=== PATIENT | male | born 1995 | race Caucasian/White ===

== ENCOUNTER 2021-04-25 12:56 | Emergency (ER) | payer OTHER ==
[2021-04-25 17:15] LABS: SARS-COV-2 RT PCR POSITIVE (NEGATIVE)
--- NOTE | 2021-04-25 17:17 | EDPHYS ---
Physician Documentation [facility] Name: Tonny Aldrich Age: 26 yrs Sex: Male : 1995 Arrival Date: 04/25/2021 Time: 12:59 Bed 11 Private MD: El Jarvis HPI: 04/25 15:50 This 26 yrs old Male presents to ER via Ambulatory with complaints of Weight Loss, cp Swollen Lymph Node. 15:50 The patient or guardian complains of tenderness, enlarged lymph node. Onset: The cp symptoms/episode began/occurred 1 week(s) ago. Associated signs and symptoms: Pertinent positives: fatigue, weight loss, Pertinent negatives: fever, headache, cough. Historical: - Allergies: 13:57 No Known Allergies; ll1 - PMHx: 13:57 None; ll1 - PSHx: 13:57 None; ll1 - Immunization history:: Client reports receiving the 2nd dose of the Covid vaccine. - Social history:: Smoking status: Reported history of juuling and/or vaping. ROS: 15:55 Constitutional: Positive for fatigue, weight loss, Negative for body aches, chills, cp fever, poor PO intake. 15:55 Eyes: Negative for injury, pain, redness, and discharge. cp 15:55 ENT: Negative for drainage from ear(s), ear pain, sore throat, difficulty swallowing, difficulty handling secretions. 15:55 Cardiovascular: Negative for chest pain. 15:55 Respiratory: Negative for cough, shortness of breath, wheezing. 15:55 Abdomen/GI: Negative for abdominal pain, nausea, vomiting, and diarrhea. 15:55 Skin: Negative for rash. 15:55 Neuro: Negative for headache, weakness. 15:55 All other systems are negative. Exam: 16:00 Constitutional: The patient appears in no acute distress, alert, awake, comfortable, cp non-toxic, well developed, well nourished. 16:00 Head/Face: Normocephalic, atraumatic. cp 16:00 Eyes: Periorbital structures: appear normal, Conjunctiva: normal, no exudate, no injection, Sclera: no appreciated abnormality, Lids and lashes: appear normal, bilaterally. 16:00 ENT: External ear(s): are unremarkable, Ear canal(s): are normal, clear, TM's: dullness, bilaterally, Nose: is normal, Mouth: Lips: moist, Oral mucosa: pink and intact, moist, Posterior pharynx: Airway: no evidence of obstruction, patent, Tonsils: are normal in appearance, swelling, is not appreciated, erythema, is not appreciated, exudate, is not appreciated. 16:00 Neck: ROM/movement: is normal, is supple, without pain, no range of motions limitations, no meningismus, no nuchal rigidity, Lymph nodes: lymphadenopathy is appreciated, anterior cervical nodes. 16:00 Chest/axilla: Inspection: normal. 16:00 Cardiovascular: Rate: normal, Rhythm: regular. 16:00 Respiratory: the patient does not display signs of respiratory distress, Respirations: normal, no use of accessory muscles, no retractions, labored breathing, is not present, Breath sounds: are clear throughout, no decreased breath sounds, no stridor, no wheezing. 16:00 Abdomen/GI: Exam negative for discomfort, distension, guarding, Inspection: abdomen appears normal. Vital Signs: 13:55 BP 142 / 92; Pulse 87; Resp 16; Temp 98.2; Pulse Ox 100% ; Height 6 ft. (182.88 cm); ll1 Pain 0/10; 17:29 BP 131 / 72; Pulse 80; Resp 16; Pulse Ox 100% ; ll1 MDM: 15:35 Patient medically screened. cp 17:16 Data reviewed: vital signs, nurses notes, lab test result(s), and as a result, I will cp discharge patient. 17:16 Differential diagnosis: strep mono, abscess, COVID-19. Counseling: I had a detailed cp discussion with the patient and/or guardian regarding: the historical points, exam findings, and any diagnostic results supporting the discharge/admit diagnosis, lab results, the need for outpatient follow up, a family practitioner, to return to the emergency department if symptoms worsen or persist or if there are any questions or concerns that arise at home. 04/25 15:48 Order name: Strep; Complete Time: 17:04 cp 04/25 17:04 Interpretation: Reviewed. 04/25 15:48 Order name: COVID-19/FLU A+B (Document "Date of Onset" if Symptomatic); Complete Time: cp 17:16 04/25 16:42 Order name: Throat Culture EDMS Administered Medications: No medications were administered Disposition Summary: 04/25/21 17:16 Discharge Ordered Location: Home cp Problem: new cp Symptoms: are unchanged cp Condition: Stable cp Diagnosis - SARS-associated coronavirus as the cause of diseases classified elsewhere cp Followup: cp - With: Private Physician - When: 1 week - Reason: Recheck today's complaints Discharge Instructions: - Discharge Summary Sheet cp - Form - Excuse from Work, School, or Physical Activity cp - COVID-19 cp - Things to Know about the COVID-19 Pandemic - [facility] cp - 10 Things You Can Do to Manage Your COVID-19 Symptoms at Home - [facility] cp - COVID-19: Quarantine vs. Isolation - [facility] cp - Prevent the Spread of COVID-19 if You Are Sick - [facility] cp Forms: - Medication Reconciliation Form cp - Thank You Letter cp - Antibiotic Education cp - Prescription Opioid Use cp Prescriptions: - Ibuprofen 800 mg Oral Tablet - take 1 tablet by ORAL route every 8 hours As needed take with food; 30 tablet; cp Refills: 0, Product Selection Permitted Addendum: 04/27/2021 07:22 Co-signature as Attending Physician, El Gee MD I agree with the assessment and c mederos plan of care. Signatures: Dispatcher [employer] EDMS El Gee MD MD cha Page, Corey PA Ruma Her cp, RN RN ll1
--- NOTE | 2021-04-25 17:17 | ER ---
Nurse's Notes [facility] Name: Tonny Aldrich Age: 26 yrs Sex: Male : 1995 Arrival Date: 04/25/2021 Time: 12:59 Bed 11 Private MD: Diagnosis: SARS-associated coronavirus as the cause of diseases classified elsewhere Presentation: 04/25 13:55 Chief complaint: Patient states: Reports weight loss for past 3 weeks. [place] a swollen ll1 lymph node to R side of neck area about 1 week. ago. No fever or cough. States he had a penile infection a couple months ago he never treated, so he believes it may be causing his symptoms now. Coronavirus screen: Vaccine status: Patient reports receiving the 2nd dose of the covid vaccine. Client denies travel out of the [place] in the last 14 days. At this time, the client does not indicate any symptoms associated with coronavirus-19. Ebola Screen: Patient denies travel to an Ebola-affected area in the 21 days before illness onset. Initial Sepsis Screen: Does the patient meet any 2 criteria? No. Patient's initial sepsis screen is negative. Does the patient have a suspected source of infection? No. Patient's initial sepsis screen is negative. Risk Assessment: Do you want to hurt yourself or someone else? Patient reports no desire to harm self or others. Onset of symptoms was April 03, 2021. 13:55 Method Of Arrival: Ambulatory ll1 13:55 Acuity: KAYY 4 ll1 Triage Assessment: 13:58 General: Appears in no apparent distress. Behavior is calm, cooperative, appropriate ll1 for age. Pain: Denies pain. EENT: Reports knot R side of neck. Historical: - Allergies: 13:57 No Known Allergies; ll1 - PMHx: 13:57 None; ll1 - PSHx: 13:57 None; ll1 - Immunization history:: Client reports receiving the 2nd dose of the Covid vaccine. - Social history:: Smoking status: Reported history of juuling and/or vaping. Screenin:31 Abuse screen: Denies threats or abuse. Nutritional screening: No deficits noted. ll1 Tuberculosis screening: No symptoms or risk factors identified. Fall Risk Total Mendoza Fall Scale indicates No Risk (0-24 pts). Assessment: 15:18 Reassessment: No changes from previously documented assessment. Patient and/or family ll1 updated on plan of care and expected duration. Pain level reassessed. Patient is alert, oriented x 3, equal unlabored respirations, skin warm/dry/pink. 16:15 Reassessment: No changes from previously documented assessment. Patient and/or family ll1 updated on plan of care and expected duration. Pain level reassessed. Patient is alert, oriented x 3, equal unlabored respirations, skin warm/dry/pink. 17:15 Reassessment: No changes from previously documented assessment. Patient and/or family ll1 updated on plan of care and expected duration. Pain level reassessed. Patient is alert, oriented x 3, equal unlabored respirations, skin warm/dry/pink. Vital Signs: 13:55 BP 142 / 92; Pulse 87; Resp 16; Temp 98.2; Pulse Ox 100% ; Height 6 ft. (182.88 cm); ll1 Pain 0/10; 17:29 BP 131 / 72; Pulse 80; Resp 16; Pulse Ox 100% ; ll1 ED Course: 12:59 Patient arrived in ED. ds1 13:57 Triage completed. ll1 13:58 Arm band placed on. ll1 15:18 Ruma Leone RN is Primary Nurse. ll1 15:18 Patient placed in an exam room, on a stretcher. ll1 15:28 El Jack PA is PHCP. cp 15:28 El Gee MD is Attending Physician. cp 17:31 No provider procedures requiring assistance completed. Patient did not have IV access ll1 during this emergency room visit. 17:32 Patient has correct armband on for positive identification. Bed in low position. Call ll1 light in reach. Side rails up X 1. Cardiac monitoring not applicable on this patient. Administered Medications: No medications were administered Outcome: 17:16 Discharge ordered by MD. cp 17:32 Discharged to home ambulatory. ll1 17:32 Condition: stable 17:32 Discharge instructions given to patient, Instructed on discharge instructions, follow up and referral plans. medication usage, Demonstrated understanding of instructions, follow-up care, medications, Prescriptions given X 1. 17:32 Patient left the ED. ll1 Signatures: Diane Mcdonald ds1 El Jack PA PA cp Ruma Leone RN RN ll1
[2021-04-25 17:37] VITALS: TEMP 98.2; O2SAT 100
[2021-04-25 17:39] VITALS: BP 131/72
== END 2021-04-25 17:32 | disposition home or self-care (01) ==
LOC: ER 12:56
DX: U07.1 COVID-19 (principal)
CPT/HCPCS: 87070; 87081; 0240U; 99282

== ENCOUNTER 2021-08-30 10:44 | Emergency (ER) | payer OTHER ==
--- OUTSIDE RECORDS SUMMARY | 2021-08-30 10:46 | XMS REPORT | Continuity of Care Document ---
:1995 Author Organization [facility] t Address [address] [place] [address] Care Team Providers Name Role Phone PCP, DOES NOT HAVE A Primary Care Physician Unavailable MIGUEL VALDEZ Attending Clinician Unavailable Miguel Valdez MD Attending Clinician MIGUEL VALDEZ Admitting Clinician Unavailable Payers Payer Name Policy Type Policy Number Effective Date Expiration Date S ource Medicaid D [id number] [facility] [id number] 2019 00:00:00 Problems Condition Condition Condition Status Onset Resolution Last Treating Co mments Source Name Details Category Date Date Treatment Clinician Date No known No known Disease Unive rs active active ity of problems problems [facility] Allergies, Adverse Reactions, Alerts Allergy Allergy Status Severity Reaction(s) Onset Inactive Treating Comm ents Source Name Type Date Date Clinician NO KNOWN Drug Active Univers ALLERGIE Class ity of S [facility] Social History Social Habit Start Date Stop Date Quantity Comments Source Sex Assigned At [birth year] [facility] 00:00:00 00:00:00 [facility] Smoking Status Start Date Stop Date Source Unknown if ever smoked [facility] Medications Ordered Filled Start Stop Current Ordering Indication Dosage Frequency Signature Comments Components Source Medication Medication Date Date Medication? Clinician (SIG) Name Name lactulose No 30mL 30 mL, Unive rs (CEPHULAC) 06-10 Oral, ity of solution 30 07:45: 06:58 [place] mL 00 :00 dose, On Medical Fri Branch 06/10/21 at 0145, TANI magnesium 2021- No 296mL 296 mL, Uni vers citrate 06-10 Oral, ity of solution 07:45: 06:59 ONCE, 1 [place] 296 mL 00 :00 dose, On Medical Fri Branch 06/10/21 at 0145, TANI polyethylen Yes [id number] 1{packe Take 1 Univers e glycol 2-11 t} Packet by ity of 3350 00:00: mouth [place] (MIRALAX) 00 every 4 Medical 17 gram (four) Branch powder hours as needed for Constipati on for up to 12 doses. glycerin/mi 2021- Yes [id number] 225mL Insert 225 Univers neral oil, 06-10 mL into ity o f AGLO ENEMA, 00:00: 05:59 rectum Maurice as Enem 00 :00 once now Medical for 1 Branch dose. Immunizations Ordered Immunization Filled Immunization Date Status Commen ts Source Name Name Joanna COVID-19 Moderna COVID-19 2020-08-13 Completed Vaccine Vaccine 00:00:00 Louanna COVID-19 Moderna COVID-19 2020-07-16 Completed Vaccine Vaccine 00:00:00 Vital Signs Vital Name Observation Time Observation Value Comments Source Systolic blood 2021-06-10 05:12:00 109 mm[Hg] Univer sity of pressure [facility] Diastolic blood 2021-06-10 05:12:00 65 mm[Hg] Unive rsity of [facility] Heart rate 2021-06-10 05:12:00 86 /min [facility] Body temperature 2021-06-10 05:12:00 36.78 [facility] Res[facility] rate 2021-06-10 05:12:00 16 /min [facility] Body height 2021-06-10 05:12:00 182.9 cm [facility] Body weight 2021-06-10 05:12:00 81.647 kg [facility] BMI 2021-06-10 05:12:00 24.41 kg/m2 [facility] Oxygen saturation in 2021-06-10 05:12:00 100 /min [facility] blood by [facility] Pulse oximetry Branch Procedures Procedure Date / Time Performed Performing Clinician Sour e XR ABDOMEN 2 VW 2021-06-10 06:30:00 Gerardo Valdez [facility] ASSIGNMENT OF BENEFITS 2021-06-10 05:07:38 Doctor Unassigned, No [facility] CONSENT/REFUSAL FOR 2021-06-10 05:06:30 Doctor Unassigned, No [facility] DIAGNOSIS AND Name [facility] TREATMENT Encounters Start End Encounter Admission Attending Care Care Encounter Source Date/Time Date/Time Type Type Clinicians Facility Department ID 2021-07-23 Outpatient [facility] [id number] [place] 05:34:54 [facility] 2021-06-09 2021-06-10 Emergency X JOSÉ MIGUEL [facility] ERT [id number] Univers 23:16:00 01:08:00 GERARDO noel [facility] 2021-06-09 2021-06-10 Emergency José Miguel [facility] [id number] Univers 23:16:00 01:08:00 [facility] [id number] it y Maggie GOLDEN [id number] [facility] [id number] [address] ([facility]) 2020-08-13 2020-08-13 Outpatient [facility] [id number] [facility] 00:00:00 00:00:00 V 2020-07-16 2020-07-16 Outpatient [facility] [id number] [facility] 00:00:00 00:00:00 V Results This patient has no known results.
[2021-08-30 13:10] LABS: Absolute Lymphocytes (CBC) 2.2 K/uL (0.7-4.9); Hematocrit 43.9 % (39.6-49.0); Lymphocytes % 26.1 % (15.3-44.8); MPV 7.6 fL (7.6-11.3); RBC Red Blood Cell Count 5.14 M/uL (4.33-5.43)
[2021-08-30 13:13] LABS: Protime INR 1.04
--- NOTE | 2021-08-30 13:26 | RAD REPORT ---
EXAM DESCRIPTION: RAD - Chest Single View - 08/30/2021 1:02 pm CLINICAL HISTORY: PALPITATIONS COMPARISON: None available TECHNIQUE: AP portable chest image was obtained 08/30/2021 1:02 pm . FINDINGS: Lungs are clear. Heart and vasculature are normal. No measurable pleural effusion and no p neumothorax. No acute bony abnormality seen. No acute aortic findings suspected. IMPRESSION: No acute cardiopulmonary process.
[2021-08-30] MEDS ORDERED: NA CHLORIDE 0.9% 1,000 ML ONE (13:27)
[2021-08-30 13:31] LABS: ALT/SGPT 25 U/L (12-78); AST/SGOT 14 U/L (15-37); Albumin 4.6 g/dL (3.4-5.0); Alkaline Phosphatase 67 U/L (45-117); BUN Blood Urea Nitrogen 22 mg/dL (7-18); Bicarbonate 25 mmol/L (21-32); Bilirubin Direct 0.3 mg/dL (0-0.2); Bilirubin Total 1.2 mg/dL (0.2-1.0); Glucose Level 86 mg/dL (74-106); Magnesium 2.4 mg/dL (1.8-2.4); NT PRO-BNP 15 pg/mL (<125); Potassium 3.2 mmol/L (3.5-5.1); Protein, Total 8.8 g/dL (6.4-8.2); Sodium Level 136 mmol/L (136-145)
[2021-08-30 13:34] LABS: Troponin High Sensitivity < 3.0 pg/mL (<58.9)
--- NOTE | 2021-08-30 14:58 | EDPHYS ---
Physician Documentation [facility] Name: Tonny Aldrich Age: 26 yrs Sex: Male : 1995 Arrival Date: 08/30/2021 Time: 10:45 Bed 12 Private MD: ED Physician Jas Richter HPI: 08/30 12:17 This 26 yrs old Male presents to ER via Wheelchair with complaints of Breathing jmm Difficulty. 12:17 The patient has shortness of breath at rest. Onset: The symptoms/episode began/occurred jmm acutely, today. Duration: The symptoms are continuous, but are steadily getting better. The patient's shortness of breath is aggravated by nothing, is alleviated by nothing. This is a 26 year old male with no known chronic medical conditions that presents to the ED with complaints of difficulty breathing, palpitations which occurred suddenly while at work. Patient admits to having facial numbness and felt his left hand lock up. Patient states he has been working out in the sun for 2 days. States symptoms have improved. . Historical: - Allergies: 11:00 No Known Allergies; ll1 - PMHx: 11:00 None; ll1 - PSHx: 11:00 None; ll1 - Immunization history:: Client reports having NOT received the Covid vaccine. - Social history:: Smoking status: Reported history of juuling and/or vaping. ROS: 12:17 Constitutional: Negative for fever, chills, and weight loss. jmm 12:17 Cardiovascular: Positive for chest pain, palpitations. 12:17 Respiratory: Positive for shortness of breath. 12:17 All other systems are negative. Exam: 12:17 Constitutional: This is a well developed, well nourished patient who is awake, alert, jmm and in no acute distress. Head/Face: atraumatic. Eyes: EOMI, no conjunctival erythema appreciated ENT: Moist Mucus Membranes Neck: Trachea midline, Supple Chest/axilla: Normal chest wall appearance and motion. Cardiovascular: Regular rate and rhythm. No edema appreciated Respiratory: Normal respirations, no respiratory distress appreciated Abdomen/GI: Non distended, soft Back: Normal ROM Skin: General appearance color normal MS/ Extremity: Moves all extremities, no obvious deformities appreciated, no edema noted to the lower extremities Neuro: Awake and alert Psych: Behavior is normal, Mood is normal, Patient is cooperative and pleasant Vital Signs: 10:59 BP 117 / 94; Pulse 105; Resp 24; Temp 98.6; Pulse Ox 100% on R/A; Weight 81.65 kg; ll1 Height 6 ft. 0 in. (182.88 cm); Pain 0/10; 13:06 BP 121 / 82; Pulse 86; Resp 11; Pulse Ox 98% on R/A; ld1 14:22 BP 109 / 78; Pulse 66; Resp 14; Pulse Ox 100% on R/A; ld1 14:58 BP 116 / 77; Pulse 79; Resp 16; Pulse Ox 100% on R/A; Pain 0/10; ld1 10:59 Body Mass Index 24.41 (81.65 kg, 182.88 cm) ll1 MDM: 12:16 Patient medically screened. [facility] 14:55 Data reviewed: vital signs, nurses notes. Counseling: I had a detailed discussion with gus the patient and/or guardian regarding: the historical points, exam findings, and any diagnostic results supporting the discharge/admit diagnosis, lab results, radiology results, the need for outpatient follow up, to return to the emergency department if symptoms worsen or persist or if there are any questions or concerns that arise at home. ED course: Patient states feeling much better. Patient advised to discontinue drug use. Otherwise given strict return precautions. Patient understood and agrees with the plan of care. . 08/30 12:16 Order name: Basic Metabolic Panel; Complete Time: 14:02 [facility] 08/30 12:16 Order name: CBC with Diff; Complete Time: 13:17 [facility] 08/30 12:16 Order name: LFT's; Complete Time: 14:02 [facility] 08/30 12:16 Order name: Magnesium; Complete Time: 14:02 [facility] 08/30 12:16 Order name: NT PRO-BNP; Complete Time: 14:02 [facility] 08/30 12:16 Order name: PT-INR; Complete Time: 13:17 [facility] 08/30 12:16 Order name: Troponin HS; Complete Time: 14:02 [facility] 08/30 12:16 Order name: XRAY Chest (1 view); Complete Time: 13:34 [facility] 08/30 12:16 Order name: EKG; Complete Time: 12:17 [facility] 08/30 12:16 Order name: Cardiac monitoring; Complete Time: 13:05 [facility] 08/30 12:16 Order name: EKG - Nurse/Tech; Complete Time: 13:05 [facility] 08/30 12:16 Order name: IV Saline Lock; Complete Time: 13:05 [facility] 08/30 13:22 Order name: CPK; Complete Time: 14:46 [facility] 08/30 12:16 Order name: Labs collected and sent; Complete Time: 13:05 [facility] 08/30 12:16 Order name: O2 Per Protocol; Complete Time: 12:46 [facility] 08/30 12:16 Order name: O2 Sat Monitoring; Complete Time: 12:46 [facility] Administered Medications: 13:24 Drug: NS 0.9% 1000 ml Route: IV; Rate: 1 bolus; Site: right antecubital; ld1 14:22 Follow up: Response: No adverse reaction; IV Status: Completed infusion; IV Intake: ld1 1000ml Disposition: 18:55 Co-signature as Attending Physician, Jas Richter MD. rn Disposition Summary: 08/30/21 14:58 Discharge Ordered Location: Home [facility] Condition: Stable [facility] Diagnosis - Dyspnea [facility] Followup: jmm - With: Private Physician - When: 2 - 3 days - Reason: Recheck today's complaints, Continuance of care, Re-evaluation by your physician Discharge Instructions: - Discharge Summary Sheet [facility] - Methamphetamines Use Disorder jm - Managing Anxiety, Adult jmm Forms: - Medication Reconciliation Form [facility] - Thank You Letter jm - Antibiotic Education jmm - Prescription Opioid Use [facility] Signatures: Dispatcher [employer] EDMarquis Gray PA PA [facility] Jas Richter MD MD rn Lewis, Lynsay RN RN ll1 Michell Sparks RN RN ld1
--- NOTE | 2021-08-30 14:58 | ER ---
Nurse's Notes [facility] Name: Tonny Aldrich Age: 26 yrs Sex: Male : 1995 Arrival Date: 08/30/2021 Time: 10:45 Bed 12 Private MD: Diagnosis: Dyspnea Presentation: 08/30 10:59 Chief complaint: Patient states: SOB started at work. Works outside in the heat all day ll1 and feels dehydrated. States he feels like its a anxiety attack. Coronavirus screen: Vaccine status: Patient reports receiving the 2nd dose of the covid vaccine. Client denies travel out of the [place] in the last 14 days. At this time, the client does not indicate any symptoms associated with coronavirus-19. Ebola Screen: Patient denies travel to an Ebola-affected area in the 21 days before illness onset. Initial Sepsis Screen: Does the patient meet any 2 criteria? No. Patient's initial sepsis screen is negative. Does the patient have a suspected source of infection? No. Patient's initial sepsis screen is negative. Risk Assessment: Do you want to hurt yourself or someone else? Patient reports no desire to harm self or others. Onset of symptoms was August 30, 2021. 10:59 Method Of Arrival: Wheelchair ll1 10:59 Acuity: KAYY 3 ll1 Triage Assessment: 11:07 General: Appears uncomfortable, ill, Behavior is cooperative, appropriate for age, ss anxious. Pain: Denies pain. Respiratory: Reports shortness of breath labored breathing Onset: The symptoms/episode began/occurred suddenly, the patient has moderate shortness of breath. Musculoskeletal: Reports hands cramping, body feeling numb. Historical: - Allergies: 11:00 No Known Allergies; ll1 - PMHx: 11:00 None; ll1 - PSHx: 11:00 None; ll1 - Immunization history:: Client reports having NOT received the Covid vaccine. - Social history:: Smoking status: Reported history of juuling and/or vaping. Screenin:06 Abuse screen: Denies threats or abuse. Denies injuries from another. Nutritional ld1 screening: No deficits noted. Tuberculosis screening: No symptoms or risk factors identified. Fall Risk None identified. Assessment: 13:06 General: Appears in no apparent distress. comfortable, Behavior is cooperative, ld1 anxious. Pain: Denies pain. Neuro: Level of Consciousness is awake, alert, obeys commands, Oriented to person, place, time, situation. Cardiovascular: Capillary refill < 3 seconds Patient's skin is warm and dry. Rhythm is sinus tachycardia. Respiratory: Airway is patent Respiratory effort is even, unlabored, Breath sounds are clear bilaterally. GI: Abdomen is flat, non-distended. : No signs and/or symptoms were reported regarding the genitourinary system. EENT: No signs and/or symptoms were reported regarding the EENT system. Derm: No signs and/or symptoms reported regarding the dermatologic system. Musculoskeletal: No signs and/or symptoms reported regarding the musculoskeletal system. 13:06 Reassessment: Pt reports recent meth use - thinks he is having anxiety due to recent ld1 drug use. Notified ERP. 14:22 Reassessment: Patient appears in no apparent distress at this time. Patient states ld1 feeling better. Vital Signs: 10:59 BP 117 / 94; Pulse 105; Resp 24; Temp 98.6; Pulse Ox 100% on R/A; Weight 81.65 kg; ll1 Height 6 ft. 0 in. (182.88 cm); Pain 0/10; 13:06 BP 121 / 82; Pulse 86; Resp 11; Pulse Ox 98% on R/A; ld1 14:22 BP 109 / 78; Pulse 66; Resp 14; Pulse Ox 100% on R/A; ld1 14:58 BP 116 / 77; Pulse 79; Resp 16; Pulse Ox 100% on R/A; Pain 0/10; ld1 10:59 Body Mass Index 24.41 (81.65 kg, 182.88 cm) ll1 ED Course: 10:45 Patient arrived in ED. mr 11:00 Triage completed. ll1 11:01 Arm band placed on. ll1 12:03 Marquis Nielson PA is PHCP. jmm 12:03 Jas Richter MD is Attending Physician. jmm 12:04 Jas Richter MD is Attending Physician. m 12:45 Michell Sparks, LAVERN is Primary Nurse. ld1 13:04 XRAY Chest (1 view) In Process Unspecified. EDMS 13:05 Inserted saline lock: 20 gauge in right antecubital area, using aseptic technique. ld1 Blood collected. 13:06 Patient has correct armband on for positive identification. Placed in gown. Bed in low ld1 position. Call light in reach. Side rails up X2. artificial leather calender operator on. Pulse ox on. NIBP on. Door closed. Noise minimized. Warm blanket given. 13:06 No provider procedures requiring assistance completed. ld1 14:59 IV discontinued, intact, bleeding controlled, No redness/swelling at site. ld1 Administered Medications: 13:24 Drug: NS 0.9% 1000 ml Route: IV; Rate: 1 bolus; Site: right antecubital; ld1 14:22 Follow up: Response: No adverse reaction; IV Status: Completed infusion; IV Intake: ld1 1000ml Intake: 14:22 IV: 1000ml; Total: 1000ml. ld1 Outcome: 14:58 Discharge ordered by . gus 14:59 Discharged to home ambulatory. ld1 14:59 Condition: stable 14:59 Discharge instructions given to patient, Instructed on discharge instructions, follow up and referral plans. Demonstrated understanding of instructions, follow-up care. 15:03 Patient left the ED. ld1 Signatures: Dispatcher [employer] EDMS Marquis Nielson PA PA jmm Rivera, Mary mr Twila Murrieta, RN RN Ruma Gilmore RN RN 1 Michell Sparks RN RN ld1
[2021-08-30 17:33] VITALS: TEMP 98.6
[2021-08-30 17:34] VITALS: O2SAT 100
[2021-08-30 17:35] VITALS: BP 116/77
--- NOTE | 2021-08-31 12:55 | EKG ---
Test Date: 2021-08-30 Test Time: 12:52:56 Key Filer: CELESTINE MEASUREMENT RESULTS: Intervals: Rate: 82 IN: 172 QRSD: 96 QT: 378 QTc: 441 [place]: P: 87 IN: 172 QRS: 92 T: 89 INTERPRETIVE STATEMENTS: Normal sinus rhythm with sinus arrhythmia Rightward axis Borderline ECG No previous ECG available for comparison Electronically Signed On 08-31-21 12:52:12 CDT by Amanuel Santos
== END 2021-08-30 15:03 | disposition home or self-care (01) ==
LOC: ER 10:44
DX: R06.00 Dyspnea, unspecified (principal); R07.9 Chest pain, unspecified; R20.0 Anesthesia of skin
CPT/HCPCS: 93005; 85025; 80048; 36415; 83735; 82550; 85610; 80076; 84484; 83880; 71045; 96360; 99284; J7030

== ENCOUNTER 2022-03-07 22:42 | Emergency (ER) | payer OTHER ==
--- OUTSIDE RECORDS SUMMARY | 2022-03-07 22:45 | XMS REPORT | Continuity of Care Document ---
:1995 Author Organization [facility] t Address [address] [place] [address] Care Team Providers Name Role Phone PCP, PATIENT DOES NOT HAVE A Primary Care Physician Unavaila GERARDO Treviño Attending Clinician Unavailable Gerardo Valdez MD Attending Clinician GERARDO VALDEZ Admitting Clinician Unavailable Payers Payer Name Policy Type Policy Number Effective Date Expiration Date S ource Medicaid D [id number] [facility] [id number] 2019 00:00:00 Problems Condition Condition Condition Status Onset Resolution Last Treating Co mments Source Name Details Category Date Date Treatment Clinician Date No known No known Disease Unive rs active active ity of problems problems [facility] Allergies, Adverse Reactions, Alerts Allergy Allergy Status Severity Reaction(s) Onset Inactive Treating Comm ents Source Name Type Date Date Clinician NO KNOWN Drug Active Univers ALLERGIE Class ity of S [facility] Social History Social Habit Start Date Stop Date Quantity Comments Source Sex Assigned At [birth year] [facility] 00:00:00 00:00:00 [facility] Smoking Status Start Date Stop Date Source Unknown if ever smoked [facility] Medications Ordered Filled Start Stop Current Ordering Indication Dosage Frequency Signature Comments Components Source Medication Medication Date Date Medication? Clinician (SIG) Name Name lactulose 2021- No 30mL 30 mL, Unive rs (CEPHULAC) [...] Branch 06/10/21 at 0145, TANI polyethylen Yes [id number] 1{packe Take 1 Univers e glycol 2-11 t} Packet by ity of 3350 00:00: mouth [place] (MIRALAX) 00 every 4 Medical 17 gram (four) Branch powder hours as needed for Constipati on for up to 12 doses. glycerin/mi 2021- No [id number] 225mL Insert 225 Univers neral oil, 06-10 mL into ity o f AGLO ENEMA, 00:00: 05:59 rectum Maurice as Enem 00 :00 once now Medical for 1 Branch dose. Immunizations Ordered Immunization Filled Immunization Date Status Commen ts Source Name Name Joanna COVID-19 Moderna COVID-19 2020-08-13 Completed Vaccine Vaccine 00:00:00 Moderna COVID-19 Moderna COVID-19 2020-07-16 Completed Vaccine Vaccine 00:00:00 Vital Signs Vital Name Observation Time Observation Value Comments Source Systolic blood 2021-06-10 05:12:00 109 mm[Hg] Univer sity of pressure [facility] Diastolic blood 2021-06-10 05:12:00 65 mm[Hg] Unive rsity of [facility] Heart rate 2021-06-10 05:12:00 86 /min [facility] Body temperature 2021-06-10 05:12:00 36.78 Jodi [facility] Respiratory rate 2021-06-10 05:12:00 16 /min [facility] Body height 2021-06-10 05:12:00 182.9 cm [facility] Body weight 2021-06-10 05:12:00 81.647 kg [facility] BMI 2021-06-10 05:12:00 24.41 kg/m2 [facility] Oxygen saturation in 2021-06-10 05:12:00 100 /min [facility] blood by [facility] Pulse oximetry Branch Procedures Procedure Date / Time Performed Performing Clinician Sour e XR ABDOMEN 2 VW 2021-06-10 06:30:00 Gerardo Valdez [facility] ASSIGNMENT OF BENEFITS 2021-06-10 05:07:38 Doctor Unassigned, No [facility] Name [facility] CONSENT/REFUSAL FOR 2021-06-10 05:06:30 Doctor Unassigned, No [facility] DIAGNOSIS AND Name [facility] TREATMENT Encounters Start End Encounter Admission Attending Care Care Encounter Source Date/Time Date/Time Type Type Clinicians Facility Department ID 2021-07-23 Outpatient [facility] [id number] [place] 05:34:54 [facility] 2021-06-09 2021-06-10 Emergency X JOSÉ MIG[facility]EL [facility] ERT [id number] Univers 23:16:00 01:08:00 GERARDO noel [facility] 2021-06-09 2021-06-10 Emergency José Miguel [facility] [id number] Univers 23:16:00 01:08:00 [facility] [id number] it Maggie GOLDEN [id number] [facility] [id number] [address] ([facility]) 2020-08-13 2020-08-13 Outpatient [facility] [id number] [facility] 00:00:00 00:00:00 V 2020-07-16 2020-07-16 Outpatient [facility] [id number] [facility] 00:00:00 00:00:00 V Results This patient has no known results.
[2022-03-07] MEDS ORDERED: IBUPROFEN 400 MG TAB ONE (23:13)
[2022-03-07] MEDS ORDERED: HYDROCODONE/CHLORPHEN 5 ML/OSYR ONE (23:13)
[2022-03-08 00:21] LABS: SARS-COV-2 RT PCR NEGATIVE (NEGATIVE)
--- NOTE | 2022-03-08 00:51 | EDPHYS ---
Physician Documentation [facility] Name: Tonny Aldrich Age: 27 yrs Sex: Male : 1995 Arrival Date: 03/07/2022 Time: 22:48 Bed 13 Private MD: ED Physician Edmond Caldera HPI: 03/07 23:15 This 27 yrs old Male presents to ER via Ambulatory with complaints of Cough. cp 23:15 The patient or guardian reports cough, that is intermittent. Onset: The cp symptoms/episode began/occurred yesterday. Associated signs and symptoms: Pertinent positives: fever, sore throat, Pertinent negatives: diarrhea, vomiting. Severity of symptoms: in the emergency department the symptoms are unchanged despite home interventions. Historical: - Allergies: 22:58 No Known Allergies; as6 - Home Meds: 22:58 None [Active]; as6 - PMHx: 22:58 None; as6 - PSHx: 22:58 None; as6 - Immunization history:: Adult Immunizations Client reports receiving the 2nd dose of the Covid vaccine, moderna Flu vaccine is not up to date. - Social history:: Smoking status: Reported history of juuling and/or vaping. ROS: 23:20 Constitutional: Positive for body aches, Negative for fever, poor PO intake. cp 23:20 Eyes: Negative for injury, pain, redness, and discharge. cp 23:20 ENT: Positive for sore throat, Negative for drainage from ear(s), ear pain, difficulty swallowing, difficulty handling secretions. 23:20 Respiratory: Positive for cough, "sounds productive", Negative for wheezing. 23:20 Abdomen/GI: Negative for abdominal pain, vomiting, diarrhea, constipation. 23:20 Neuro: Positive for headache, Negative for altered mental status, dizziness, weakness. 23:20 All other systems are negative. Exam: 23:25 Constitutional: The patient appears in no acute distress, alert, awake, non-toxic, well cp developed, well nourished. 23:25 Head/Face: Normocephalic, atraumatic. cp 23:25 Eyes: Periorbital structures: appear normal, Conjunctiva: normal, no exudate, no injection, Sclera: no appreciated abnormality, Lids and lashes: appear normal, bilaterally. 23:25 ENT: External ear(s): are unremarkable, Ear canal(s): are normal, clear, TM's: dullness, bilaterally, Nose: is normal, Mouth: Lips: moist, Oral mucosa: pink and intact, moist, Posterior pharynx: Airway: no evidence of obstruction, patent, Tonsils: no enlargement, no exudate, erythema, that is mild, exudate, is not appreciated. 23:25 Neck: ROM/movement: is normal, is supple, without pain, no range of motions limitations, no meningismus, no nuchal rigidity, Lymph nodes: no appreciated lymphadenopathy. 23:25 Chest/axilla: Inspection: normal, Palpation: is normal, no crepitus, no tenderness. 23:25 Cardiovascular: Rate: normal, Rhythm: regular. 23:25 Respiratory: the patient does not display signs of respiratory distress, Respirations: labored breathing, is not present, intercostal retractions, are absent, Breath sounds: decreased breath sounds, are not appreciated, stridor, is not appreciated, + upper airway congestion. wheezing: is not appreciated. 23:25 Abdomen/GI: Inspection: abdomen appears normal, Palpation: abdomen is soft and non-tender, in all quadrants. 23:25 Back: pain, is absent, ROM is normal. 23:25 Neuro: Orientation: to person, place \\T\\ time. Mentation: is normal, Motor: moves all fours, strength is normal, Sensation: is normal. Vital Signs: 22:56 BP 115 / 80; Pulse 85; Resp 18 S; Temp 98.7(O); Pulse Ox 98% on R/A; Weight 81.65 kg as6 (R); Height 6 ft. 0 in. (182.88 cm) (R); Pain 10/07; 03/08 00:55 BP 118 / 76; Pulse 85; Resp 18 S; Pulse Ox 99% on R/A; as6 03/07 22:56 Body Mass Index 24.41 (81.65 kg, 182.88 cm) as6 MDM: 03/07 23:02 Patient medically screened. cp 03/08 00:50 Data reviewed: vital signs, nurses notes, lab test result(s). cp 00:50 Differential diagnosis: bronchitis, flu, peumonia. Antibiotic administration: Not cp indicated, the patient has a suspected viral illness. Counseling: I had a detailed discussion with the patient and/or guardian regarding: the historical points, exam findings, and any diagnostic results supporting the discharge/admit diagnosis, lab results, radiology results, to return to the emergency department if symptoms worsen or persist or if there are any questions or concerns that arise at home. Response to treatment: the patient's symptoms have markedly improved after treatment, and as a result, I will discharge patient. 03/07 23:06 Order name: COVID-19/FLU A+B (Document "Date of Onset" if Symptomatic); Complete Time: cp 00:44 03/08 00:44 Interpretation: Reviewed. cp 03/07 23:06 Order name: Strep; Complete Time: :44 cp 03/07 23:06 Order name: XRAY Chest Pa And Lat (2 Views) cp 03/08 00:20 Order name: Throat Culture EDMS Administered Medications: 03/07 23:25 Drug: Ibuprofen 800 mg Route: PO; as6 03/08 00:54 Follow up: Response: No adverse reaction as6 03/07 23:26 Drug: Tussionex Pennkinetic ER (chlorpheniramine-hydrocodone) Suspension 5 ml Route: PO;as6 03/08 00:54 Follow up: Response: No adverse reaction as6 00:54 Drug: Tamiflu (oseltamivir) 75 mg Route: PO; as6 00:54 Follow up: Response: No adverse reaction as6 Disposition Summary: 03/08/22 00:51 Discharge Ordered Location: Home cp Problem: new cp Symptoms: have improved cp Condition: Stable cp Diagnosis - Influenza due to identified novel influenza A virus with other respiratory cp manifestations Followup: cp - With: Private Physician - When: 1 - 2 days - Reason: Worsening of condition Discharge Instructions: - Discharge Summary Sheet cp - Influenza, Adult cp Forms: - Medication Reconciliation Form cp - Thank You Letter cp - Antibiotic Education cp - Prescription Opioid Use cp - Work release form [id number] Prescriptions: - Bromfed DM 2-30-10 mg/5 mL Oral syrup - take 10 milliliter by ORAL route every 6 hours; 180 milliliter; Refills: 0, cp Product Selection Permitted - Ibuprofen 800 mg Oral Tablet - take 1 tablet by ORAL route every 8 hours As needed take with food; 30 tablet; cp Refills: 0, Product Selection Permitted - Tamiflu 75 mg Oral Capsule - take 1 capsule by ORAL route every 12 hours for 5 days; 10 capsule; Refills: 0, cp Product Selection Permitted Signatures: Dispatcher [employer] EDNV El Jack PA PA cp Slawson, Ashby RN RN as6
--- NOTE | 2022-03-08 00:51 | ER ---
Nurse's Notes [facility] Name: Tonny Aldrich Age: 27 yrs Sex: Male : 1995 Arrival Date: 03/07/2022 Time: 22:48 Bed 13 Private MD: Diagnosis: Influenza due to identified novel influenza A virus with other respiratory manifestations Presentation: 03/07 22:56 Chief complaint: Patient states: "I'm having some weakness and nasal congestion and my as6 chest feels congested. I also have been running a fever". Coronavirus screen: Client presents with at least one sign or symptom that may indicate coronavirus-19. Standard/surgical mask placed on the client. Provider contacted for isolation considerations. Ebola Screen: No symptoms or risks identified at this time. Initial Sepsis Screen: Does the patient meet any 2 criteria? No. Patient's initial sepsis screen is negative. Does the patient have a suspected source of infection? No. Patient's initial sepsis screen is negative. Risk Assessment: Do you want to hurt yourself or someone else? Patient reports no desire to harm self or others. Onset of symptoms was March 06, 2022. 22:56 Method Of Arrival: Ambulatory as6 22:56 Acuity: KAYY 4 as6 Historical: - Allergies: 22:58 No Known Allergies; as6 - Home Meds: 22:58 None [Active]; as6 - PMHx: 22:58 None; as6 - PSHx: 22:58 None; as6 - Immunization history:: Adult Immunizations Client reports receiving the 2nd dose of the Covid vaccine, moderna Flu vaccine is not up to date. - Social history:: Smoking status: Reported history of juuling and/or vaping. Screenin:31 Abuse screen: Denies threats or abuse. Denies injuries from another. Nutritional as6 screening: No deficits noted. Tuberculosis screening: No symptoms or risk factors identified. Fall Risk None identified. Assessment: 23:30 General: Appears in no apparent distress. Behavior is calm, cooperative, Reports fever as6 for feeling ill for. Pain: Complains of pain in generalized. Neuro: Level of Consciousness is awake, alert, obeys commands, Reports headache. Respiratory: Reports cough that is Breath sounds are clear bilaterally. EENT: Reports nasal congestion. Vital Signs: 22:56 BP 115 / 80; Pulse 85; Resp 18 S; Temp 98.7(O); Pulse Ox 98% on R/A; Weight 81.65 kg as6 (R); Height 6 ft. 0 in. (182.88 cm) (R); Pain 6/10; 03/08 00:55 BP 118 / 76; Pulse 85; Resp 18 S; Pulse Ox 99% on R/A; as6 03/07 22:56 Body Mass Index 24.41 (81.65 kg, 182.88 cm) as6 ED Course: 03/07 22:48 Patient arrived in ED. es 22:49 El Jack PA is PHCP. cp 22:49 Edmond Caldera MD is Attending Physician. cp 22:50 Deshawn Gonzalez, LAVERN is Primary Nurse. as6 22:58 Triage completed. as6 22:59 Arm band placed on. as6 23:21 XRAY Chest Pa And Lat (2 Views) In Process Unspecified. EDMS 23:29 Strep Sent. as6 23:29 COVID-19/FLU A+B (Document "Date of Onset" if Symptomatic) Sent. as6 23:31 Bed in low position. Call light in reach. as6 11 00:54 No provider procedures requiring assistance completed. Patient did not have IV access as6 during this emergency room visit. Administered Medications: 03/07 23:25 Drug: Ibuprofen 800 mg Route: PO; as6 03/08 00:54 Follow up: Response: No adverse reaction as6 03/07 23:26 Drug: Tussionex Pennkinetic ER (chlorpheniramine-hydrocodone) Suspension 5 ml Route: PO;as6 03/08 00:54 Follow up: Response: No adverse reaction as6 00:54 Drug: Tamiflu (oseltamivir) 75 mg Route: PO; as6 00:54 Follow up: Response: No adverse reaction as6 Medication: 03/07 23:31 VIS not applicable for this client. as6 Outcome: 03/08 00:51 Discharge ordered by . cp 00:54 Discharged to home ambulatory. as6 00:54 Condition: stable 00:54 Discharge instructions given to patient, Instructed on discharge instructions, follow up and referral plans. medication usage, Demonstrated understanding of instructions, follow-up care, medications, Prescriptions given X 3. 00:55 Patient left the ED. as6 Signatures: Dispatcher [employer] Aaliyah Deleon Corey, PA PA cp Slawson, Ashby, RN RN as6
[2022-03-08] MEDS ORDERED: OSELTAMIVIR 75 MG CAP ONE (00:52)
[2022-03-08 06:01] VITALS: TEMP 98.7
[2022-03-08 06:09] VITALS: BP 118/76; O2SAT 99
--- NOTE | 2022-03-08 11:34 | RAD REPORT ---
EXAM DESCRIPTION: RAD - Chest Pa And Lat (2 Views) - 03/07/2022 11:19 pm CLINICAL HISTORY: 7 years Male, COUGH COMPARISON: Chest radiograph dated 08/30/2021 FINDINGS: No focal lung consolidation. No pleural effusion. No pneumothorax. Cardiomediastinal silhouette is within normal limits. No acute osseous abnormality. IMPRESSION: No acute cardiopulmonary disease. Electronically signed by: Sree Adame DO 03/07/2022 11:40 PM STANDARD MACHINE STITCHER Due to temporary technical issues with the PACS/Fluency reporting system, reports are being signed by the in house radiologists without review as a courtesy to insure prompt reporting. The interpreting radiologist is fully responsible for the content of the report.
== END 2022-03-08 00:55 | disposition home or self-care (01) ==
LOC: ER 22:42
DX: J10.1 Influenza due to other identified influenza virus with other respiratory manifestations (principal); Z20.822 Contact with and (suspected) exposure to COVID-19
CPT/HCPCS: 87070; 87081; 0240U; 71046; 99284